=== PATIENT | female | born 1995 | race Caucasian/White ===

== ENCOUNTER → 2017-08-13 | Outpatient (CLI) | payer OTHER | LOC: FIMAGING 08:51 | PROVIDERS: ATTEND Obstetrics & Gynecology | DX: I86.2 Pelvic varices (principal); Z97.5 Presence of (intrauterine) contraceptive device ==

== ENCOUNTER 2017-08-24 18:49 | Emergency (ER) | payer OTHER ==
[2017-08-24 19:02] VITALS: O2SAT 97
--- NOTE | 2017-08-24 19:13 | EDPHY ---
H & P Time Seen by Provider: 08/24/17 19:05 HPI/ROS: CHIEF COMPLAINT: Abdominal pain HISTORY OF PRESENT ILLNESS: This patient is a 22 y/o female arriving with her mother complaining of sharp LLQ pain over the last 2-3 days. Two weeks ago, she had a dull left lower back pain and was treated for UTI with a 10 day course of antibiotics which relieved her pain. She underwent pelvic ultrasound at that time with her primary care provider, Dr. Marcum, which revealed pelvic congestion and inflamed bowels. She developed GI symptoms including diarrhea following her antibiotic course, which has since resolved. Her pain returned several days ago, but is now sharp and in the left lower abdominal area. This discomfort is not similar to her usual menstrual cramps. She feels constipated, nauseous, and endorses lack of appetite. She vomited today. She endorses subjective fever, but does not feel febrile currently. She denies dysuria, hematuria, melena, hematochezia, or other associated symptoms. REVIEW OF SYSTEMS: A 10 point review of systems was performed and is negative with the exception of the elements mentioned in the history of present illness. Past Medical/Surgical History: 1. IUD in place 2. Thoracic outlet syndrome Social History: Mother at bedside. Nonsmoker. Lives in [place]. Smoking Status: Never smoked Physical Exam: General Appearance: Alert, no distress Eyes: Pupils equal and round, no conjunctival pallor or injection ENT, Mouth: Mucous membranes moist Neck: Normal inspection Respiratory: Lungs are clear to auscultation Cardiovascular: Regular rate and rhythm Gastrointestinal: LLQ tenderness. No pelvic tenderness. Abdomen is soft. Neurological: A&O, nonfocal, normal gait Skin: Warm and dry, no rash Extremities: Nontender, no pedal edema Psychiatric: Mood and affect normal Constitutional: Initial Vital Signs Temperature (C) 36.5 C 08/24/17 18:59 Heart Rate 85 08/24/17 18:59 Respiratory Rate 17 08/24/17 18:59 Blood Pressure 126/80 H 08/24/17 18:59 O2 Sat (%) 97 08/24/17 18:59 O2 Delivery Mode Room Air Allergies/Adverse Reactions: No Known Allergies Allergy (Verified 08/24/17 18:59) Home Medications: Medication Instructions Recorded [facility] 08/24/17 Medical Decision Making - Diagnostics Imaging Results: Imaging Impressions Abdomen CT 08/24/17 19:21 Impression: 1. Prominent left gonadal and periuterine veins may represent pelvic congestion syndrome in the appropriate clinical setting. 2. Apparent bladder wall thickening may be due to nondistention versus cystitis. Dr. Palmer discussed these findings by telephone with JYOTI CELESTE on 2016 at 20:49. Imaging: Discussed imaging studies w/ mail caller Radiologist ED Course/Re-evaluation: 22 y/o female presents with sharp LLQ pain onset 2-3 days ago. Mild LLQ tenderness on exam. Reviewed pelvic US from 08/13/17: Normal ovaries. No ovarian cyst or evidence of torsion. Left pelvic varices. Query pelvic congestion syndrome. Discussed differential diagnoses for the patient's symptoms. She and her mother are particularly concerned regarding diverticulitis. I discussed the risks and benefits of CT. The patient and her mother would like to proceed with CT abdomen /pelvis to r/o diverticulitis. IV established. Plan for labs including BMP, UA. CBC completed earlier today by the patient's primary care provider reviewed: unremarkable. 20:[address] Palmer, radiologist. CT abdomen/pelvis shows pelvic varices as noted on ultrasound. Negative for acute processes including diverticulitis. Reassessed patient. Discussed CT results. Sx most likely secondary to pelvic congestion syndrome. Plan to d/c home in good condition with referral to OB/ [facility]. Return precautions discussed. The patient and her mother are comfortable with this plan. Differential Diagnosis: Differential diagnosis includes though it is not limited to appendicitis, cholecystitis, diverticulitis, pyelonephritis, bowel perforation, small bowel obstruction. - Data Points Laboratory Results: Laboratory Results 08/24/17 19:33 08/24/17 08/24/17 08/24/17 19:33 19:26 19:00 Sodium 130 mEq/L L mEq/L (134-144) Potassium 4.5 mEq/L mEq/L (3.5-5.2) Chloride 95 mEq/L L mEq/L (97-110) Carbon Dioxide 24 mEq/l mEq/l (22-31) Anion Gap 11 mEq/L mEq/L (8-16) BUN 5 mg/dL L mg/dL (7-23) Creatinine 0.7 mg/dL mg/dL (0.6-1.0) Estimated GFR > 60 Glucose 86 mg/dL mg/dL (70-100) Calcium 9.7 mg/dL mg/dL (8.5-10.4) Urine Color COLORLESS Urine Appearance CLEAR Urine pH 6.0 (5.0-7.5) Ur Specific [place] < 1.001 L (1.002-1.030) Urine Protein NEGATIVE (NEGATIVE) Urine Ketones NEGATIVE (NEGATIVE) Urine Blood NEGATIVE (NEGATIVE) Urine Nitrate NEGATIVE (NEGATIVE) Urine Bilirubin NEGATIVE (NEGATIVE) Urine Urobilinogen NEGATIVE EU EU (0.2-1.0) Ur Leukocyte Esterase NEGATIVE (NEGATIVE) Urine Glucose NEGATIVE (NEGATIVE) Urine Test NEGATIVE Departure - Departure Disposition: Home, Routine, Self-Care Clinical Impression: Pelvic pain Condition: Good Instructions: Pelvic Pain in Women (ED) Additional Instructions: 1. Follow up with an [facility] specialist for further evaluation. 2. You may take ibuprofen or Tylenol as directed below as needed for pain. 3. Return to the emergency department for worsening or changing pain, uncontrollable vomiting or diarrhea, fever, or other worsening of condition. Adult Pain & Fever Control: We recommend Acetaminophen (Tylenol) and Ibuprofen (Motrin,Advil) for pain and fever control. When fever is high or pain severe, both drugs can be used at the same time, but at different intervals. Please note the time differences. Your dose is: Acetaminophen 650mg every 4 to 6 hours Ibuprofen 600mg every 6-8 hours with food Note: do not take Acetaminophen with Hydrocodone (Vicodin, Lortab) or Oxycodone (Percocet). These medications also contain Acetaminophen. No more than 3000mg of Acetaminophen should be taken in 24 hours (for an adult). Referrals: Day Marcum MD [Primary Care Provider] - As per Instructions Monse Camargo MD [Medical Doctor] - As per Instructions Report Scribed for: Jyoti Celeste Report Scribed by: Amber Farris Date of Report: 08/24/17 Time of Report: 19:08 Physician Review and Approval Statement: 08/24/17 19:08 Portions of this note were transcribed by a senior medical writer. I personally performed a history, physical exam, medical decision making, and confirmed accuracy of information the transcribed note.
[2017-08-24 19:20] LABS: COLOR COLORLESS; LEUKOCYTE ESTERASE,URINE NEGATIVE (NEGATIVE); NITRITE,URINE NEGATIVE (NEGATIVE)
[2017-08-24 20:03] LABS: ANION GAP 11 mEq/L (8-16); CALCIUM 9.7 mg/dL (8.5-10.4); CARBON DIOXIDE 24 mEq/l (22-31); CHLORIDE 95 mEq/L (97-110); CREATININE 0.7 mg/dL (0.6-1.0); GLOMERULAR FILTRATION RATE > 60; GLUCOSE 86 mg/dL (70-100); POTASSIUM 4.5 mEq/L (3.5-5.2); SODIUM 130 mEq/L (134-144)
[2017-08-24] MEDS ORDERED: IOPAMIDOL (ISOVUE-300) 100 ML BTL ONE (20:08)
[2017-08-24 21:04] VITALS: BP 119/88; PULSE 84; RESP 18; TEMP 99
== END 2017-08-24 21:03 | disposition home or self-care (01) ==
DX: R10.2 Pelvic and perineal pain (principal)
CPT/HCPCS: Q9967